=== PATIENT | male | born 1940 | race Caucasian/White ===

== ENCOUNTER 2023-05-28 22:34 | Inpatient (IN) | payer MEDICARE, BC ==
[~2023-05-28] VITALS: Ht 162.6 cm; Wt 80.3 kg
[2023-05-28] MEDS ORDERED: LIDOCAINE 2% JEL UROJET 10 ML MM ONE (23:22)
[2023-05-28 23:23] LABS: BASOPHILS # (AUTO) 0.2 K/uL (0.0-0.2); BASOPHILS % (AUTO) 2.4 % (0.0-2.0); EOSINOPHILS # (AUTO) 0.2 K/uL (0.0-0.7); HEMATOCRIT 39 % (39-51); HEMOGLOBIN 12.8 g/dL (13.5-17.5); LYMPHOCYTES # (AUTO) 1.2 K/uL (0.8-4.8); LYMPHOCYTES % (AUTO) 12.7 % (20.0-44.0); MEAN CORPUSCULAR HEMOGLOBIN 31 PG (26.0-33.0); MEAN CORPUSCULAR HGB CONC 33 g/dl (31.0-36.0); MEAN CORPUSCULAR VOLUME 95 fL (80-96); MONOCYTES # (AUTO) 0.8 K/uL (0.1-1.30); MONOCYTES % (AUTO) 9.1 % (2.0-12.0); NEUTROPHILS # (AUTO) 6.8 K/uL (1.8-8.9); NEUTROPHILS % (AUTO) 73.8 % (43.0-81.0); PLATELET COUNT (AUTO) 126 K/uL (150-450); RED BLOOD CELL COUNT(AUTO) 4.08 MIL/uL (4.5-6.0); WHITE BLOOD COUNT (AUTO) 9.2 K/uL (4.3-11.0)
[2023-05-28 23:34] LABS: CALCIUM, SERUM 9.1 mg/dL (8.5-10.1); CARBON DIOXIDE 25 mmol/L (21-32); CHLORIDE 91 mmol/L (98-107); CREATININE 1.1 mg/dL (0.6-1.3); GLUCOSE 99 mg/dL (74-106); SODIUM SERUM 121 mmol/L (136-145); UREA NITROGEN, BLOOD 20 mg/dL (7-18)
[2023-05-28 23:35] LABS: INR 0.99 (0.91-1.10); PARTIAL THROMBOPLASTIN TIME 30.5 SEC (24.3-34.3); PROTHROMBIN TIME 10.5 SECS (9.2-11.1); SERUM AMMONIA 15 umol/L (11-32)
[2023-05-28 23:40] LABS: ALANINE AMINOTRANSFERASE 58 U/L (12-78); ALBUMIN 3.8 g/dL (3.4-5.0); ALKALINE PHOSPHATASE 95 U/L (46-116); ASPARTATE AMINOTRANSFERASE 37 U/L (15-37); BILIRUBIN,DIRECT 0.1 mg/dL (0.0-0.2); BILIRUBIN,TOTAL 0.2 mg/dL (0.2-1.0); TOTAL PROTEIN, SERUM 7.2 g/dL (6.4-8.2)
[2023-05-28 23:48] LABS: THYROID STIMULATING HORMONE 2.239 uIU/mL (0.358-3.74)
[2023-05-29] MEDS ORDERED: OMEP20CA15 PO (00:50)
[2023-05-29] MEDS ORDERED: LOSA50TA39 PO (00:50)
[2023-05-29] MEDS ORDERED: METO50CA MT (00:50)
[2023-05-29 00:51] LABS: APPEARANCE,URINE CLOUDY (CLEAR); BILIRUBIN,URINE 1+ (NEGATIVE); BLOOD, URINE 3+ Ery/uL (NEGATIVE); COLOR,URINE YELLOW (YELLOW); KETONES,URINE 1+ mg/dL (NEGATIVE); LEUKOCYTE ESTERASE ,URINE 2+ (NEGATIVE); NITRITE, URINE POSITIVE (NEGATIVE); PROTEIN,URINE 2+ mg/dl (NEGATIVE); UGLUCOSE NEGATIVE (NEGATIVE)
[2023-05-29] MEDS ORDERED: FAMO-131 PO (00:59)
[2023-05-29] MEDS ORDERED: MAGN500C16 PO (00:59)
[2023-05-29] MEDS ORDERED: ASPI-1169 PO (00:59)
[2023-05-29] MEDS ORDERED: MELA5TAB PO (00:59)
[2023-05-29] MEDS ORDERED: TRAZ-182 PO (00:59)
[2023-05-29] MEDS ORDERED: CHOL100045 PO (00:59)
[2023-05-29] MEDS ORDERED: CYAN250010 PO (00:59)
[2023-05-29 01:00] LABS: EOSINOPHILS % (MANUAL) 2 % (0-4); LYMPHOCYTES % (MANUAL) 30 % (16-48); MONOCYTES % (MANUAL) 9 % (0-11.0); NEUTROPHILS % (MANUAL) 59 (42-76); PLATELET ESTIMATE DECREASED
[2023-05-29 01:11] LABS: ADD URINE CULTURE YES; BACTERIA,URINE 4+ /HPF (None Seen); MUCUS,URINE Moderate /LPF (None Seen); SQUAMOUS EPITHELIAL CELL,UR None Seen /HPF (None Seen); WBC,URINE 81-100 /HPF (0-3)
[2023-05-29] MEDS ORDERED: LEVOFLOXACIN 750 MG /D5W 150ML PIGGYBACK IV ONE (02:00)
[2023-05-29] MEDS ORDERED: LEVOFLOXACIN 750 MG /D5W 150ML 150 ML IV ONE (02:13)
[2023-05-29 04:00] VITALS: BP 182/92; TEMP 98.1; O2SAT 99
[2023-05-29] MEDS ORDERED: Z GUARD REMEDY 4 OZ OINT TP PRN (04:30)
[2023-05-29] MEDS ORDERED: ACETAMINOPHEN 325 MG TABLET PO PRN (04:30)
[2023-05-29] MEDS ORDERED: ONDANSETRON HCL/PF 4 MG/2 ML VIAL IVP PRN (04:30)
[2023-05-29] MEDS ORDERED: MAGNESIUM HYDROXIDE 30 ML UDC PO PRN (04:30)
[2023-05-29] MEDS ORDERED: MAG HYDROX/AL HYDROX/SIMETH 30 ML UDC PO PRN (04:30)
[2023-05-29] MEDS ORDERED: ZOLPIDEM TARTRATE 5 MG TABLET PO PRN (04:30)
[2023-05-29] MEDS: IV NS 0.9% 1,000 ML IV PRN ×2 (04:52→21:51)
[2023-05-29] MEDS ORDERED: MEROPENEM 500MG/NS 50 ML PB IV ONE (04:52)
[2023-05-29] MEDS: MEROPENEM 1 G in IV NS 0.9% 100 ML IV SCH ×2 (04:58→16:51)
[2023-05-29 05:02] LABS: BASOPHILS % (AUTO) 0.6 % (0.0-2.0); EOSINOPHILS # (AUTO) 0.1 K/uL (0.0-0.7); EOSINOPHILS % (AUTO) 1.2 % (0.0-6.0); HEMATOCRIT 40 % (39-51); LYMPHOCYTES # (AUTO) 1.1 K/uL (0.8-4.8); LYMPHOCYTES % (AUTO) 14.6 % (20.0-44.0); MEAN CORPUSCULAR HEMOGLOBIN 31 PG (26.0-33.0); MEAN CORPUSCULAR HGB CONC 33 g/dl (31.0-36.0); MEAN CORPUSCULAR VOLUME 94 fL (80-96); MONOCYTES % (AUTO) 12.7 % (2.0-12.0); NEUTROPHILS # (AUTO) 5.4 K/uL (1.8-8.9); NEUTROPHILS % (AUTO) 70.9 % (43.0-81.0); PLATELET COUNT (AUTO) 112 K/uL (150-450); RED BLOOD CELL COUNT(AUTO) 4.21 MIL/uL (4.5-6.0); RED CELL DISTRIBUTION WIDTH 17.3 % (11.5-15.0); WHITE BLOOD COUNT (AUTO) 7.7 K/uL (4.3-11.0)
[2023-05-29 05:31] LABS: CALCIUM, SERUM 8.4 mg/dL (8.5-10.1); CARBON DIOXIDE 25 mmol/L (21-32); CHLORIDE 92 mmol/L (98-107); CREATININE 1.1 mg/dL (0.6-1.3); GLUCOSE 106 mg/dL (74-106); MAGNESIUM 2.3 mg/dL (1.8-2.4); PHOSPHORUS 3.4 mg/dL (2.5-4.9); POTASSIUM 4.3 mmol/L (3.5-5.1); SODIUM SERUM 123 mmol/L (136-145); UREA NITROGEN, BLOOD 18 mg/dL (7-18)
[2023-05-29 07:00] VITALS: BP 168/88; TEMP 98.9; O2SAT 99
[2023-05-29 08:00] VITALS: BP 150/69; TEMP 99; O2SAT 98
[2023-05-29] MEDS: METOPROLOL TARTRATE 25 MG TABLET PO SCH ×2 (08:07→21:44)
[2023-05-29] MEDS: LOSARTAN POTASSIUM 50 MG TABLET PO SCH (08:08)
[2023-05-29] MEDS: PANTOPRAZOLE 40 MG TABLET.DR PO SCH (08:09)
[2023-05-29] MEDS: ASPIRIN 81 MG TAB.CHEW PO SCH (08:09)
[2023-05-29] MEDS: FAMOTIDINE (20 MG) 20 MG TABLET PO SCH ×2 (08:09→21:45)
[2023-05-29] MEDS: CHOLECALCIFEROL 1,000 UNIT TABLET (VIT D3) PO SCH (08:09)
[2023-05-29] MEDS ORDERED: EVOL140P3 SQ (08:55)
[2023-05-29] MEDS ORDERED: METO100T14 PO (08:55)
[2023-05-29] MEDS ORDERED: BUSP7.5T7 PO (08:55)
[2023-05-29] MEDS ORDERED: DICY10CA37 PO (08:55)
[2023-05-29] MEDS ORDERED: ATOR40TA PO (08:55)
[2023-05-29] MEDS ORDERED: MAGN400T52 PO (08:55)
[2023-05-29] MEDS ORDERED: ALA PO (08:55)
[2023-05-29] MEDS ORDERED: DOCU-270 PO (08:55)
[2023-05-29 10:01] LABS: THYROID STIMULATING HORMONE 1.942 uIU/mL (0.358-3.74); URIC ACID 3.5 mg/dL (2.6-7.2)
[2023-05-29 12:00] VITALS: BP 129/69; TEMP 99.1; O2SAT 98
[2023-05-29] MEDS: DICYCLOMINE HCL 10 MG CAPSULE PO SCH ×2 (12:49→16:51)
[2023-05-29 13:22] LABS: MAGNESIUM 2.3 mg/dL (1.8-2.4); PHOSPHORUS 3.2 mg/dL (2.5-4.9)
[2023-05-29 13:33] LABS: THYROID STIMULATING HORMONE 1.639 uIU/mL (0.358-3.74); URIC ACID 2.9 mg/dL (2.6-7.2)
[2023-05-29 14:47] LABS: CARBON DIOXIDE 23 mmol/L (21-32); CHLORIDE 92 mmol/L (98-107); GLUCOSE 116 mg/dL (74-106); POTASSIUM 4.6 mmol/L (3.5-5.1); SODIUM SERUM 125 mmol/L (136-145); UREA NITROGEN, BLOOD 15 mg/dL (7-18)
[2023-05-29 16:00] VITALS: BP 163/70; TEMP 98.8; O2SAT 98
[2023-05-29] MEDS: busPIRone 5 MG TABLET PO SCH (16:52)
[2023-05-29] MEDS: DOCUSATE SODIUM 100 MG CAPSULE PO SCH (16:52)
[2023-05-29 19:00] VITALS: BP 130/61; TEMP 98.9; O2SAT 98
[2023-05-29] MEDS ORDERED: METOPROLOL TARTRATE 50 MG TABLET PO SCH (21:00)
[2023-05-29] MEDS ORDERED: TRAZODONE 50 MG TABLET PO PRN (22:00)
[2023-05-30] MEDS: MEROPENEM 1 G in IV NS 0.9% 100 ML IV SCH ×2 (05:32→17:08)
[2023-05-30 05:50] LABS: BASOPHILS % (AUTO) 0.2 % (0.0-2.0); EOSINOPHILS % (AUTO) 0.7 % (0.0-6.0); HEMATOCRIT 40 % (39-51); HEMOGLOBIN 13.3 g/dL (13.5-17.5); LYMPHOCYTES % (AUTO) 15.2 % (20.0-44.0); MEAN CORPUSCULAR HEMOGLOBIN 31 PG (26.0-33.0); MEAN CORPUSCULAR HGB CONC 33 g/dl (31.0-36.0); MEAN CORPUSCULAR VOLUME 94 fL (80-96); MONOCYTES # (AUTO) 0.9 K/uL (0.1-1.30); MONOCYTES % (AUTO) 13.3 % (2.0-12.0); NEUTROPHILS # (AUTO) 4.8 K/uL (1.8-8.9); NEUTROPHILS % (AUTO) 70.6 % (43.0-81.0); PLATELET COUNT (AUTO) 120 K/uL (150-450); RED BLOOD CELL COUNT(AUTO) 4.24 MIL/uL (4.5-6.0); RED CELL DISTRIBUTION WIDTH 17.5 % (11.5-15.0); WHITE BLOOD COUNT (AUTO) 6.8 K/uL (4.3-11.0)
[2023-05-30 06:21] LABS: THYROID STIMULATING HORMONE 2.223 uIU/mL (0.358-3.74); URIC ACID 3.1 mg/dL (2.6-7.2)
[2023-05-30 06:23] LABS: CALCIUM, SERUM 8.4 mg/dL (8.5-10.1); MAGNESIUM 2.8 mg/dL (1.8-2.4); PHOSPHORUS 3.2 mg/dL (2.5-4.9); POTASSIUM 4.9 mmol/L (3.5-5.1)
[2023-05-30 06:26] LABS: FREE PSA 0.2 ng/mL (0.00-45); PROSTATE SPECIFIC ANTIGEN SCR 0.77 ng/mL (0.00-4.00)
[2023-05-30 08:00] VITALS: BP 151/72; TEMP 98.4; O2SAT 98
[2023-05-30] MEDS: PANTOPRAZOLE 40 MG TABLET.DR PO SCH (08:14)
[2023-05-30] MEDS ORDERED: CYANOCOBALAMIN PO SCH (09:00)
[2023-05-30] MEDS: DOCUSATE SODIUM 100 MG CAPSULE PO SCH ×3 (10:03→17:22)
[2023-05-30] MEDS: FAMOTIDINE (20 MG) 20 MG TABLET PO SCH ×2 (10:16→21:31)
[2023-05-30] MEDS: CHOLECALCIFEROL 1,000 UNIT TABLET (VIT D3) PO SCH (10:16)
[2023-05-30] MEDS: ATORVASTATIN 40 MG TABLET PO SCH (10:17)
[2023-05-30] MEDS: busPIRone 5 MG TABLET PO SCH ×2 (10:17→17:08)
[2023-05-30] MEDS: METOPROLOL TARTRATE 25 MG TABLET PO SCH ×2 (10:18→21:32)
[2023-05-30] MEDS: LOSARTAN POTASSIUM 50 MG TABLET PO SCH (10:20)
[2023-05-30] MEDS: DICYCLOMINE HCL 10 MG CAPSULE PO SCH ×3 (10:20→17:09)
[2023-05-30] MEDS: ASPIRIN 81 MG TAB.CHEW PO SCH (10:25)
[2023-05-30 14:00] VITALS: BP 150/78; TEMP 99.1; O2SAT 99
[2023-05-30 20:00] VITALS: BP 163/81; TEMP 98.1; O2SAT 99
[2023-05-31] MEDS: MEROPENEM 1 G in IV NS 0.9% 100 ML IV SCH ×2 (05:11→17:04)
[2023-05-31 07:21] LABS: BASOPHILS % (AUTO) 0.1 % (0.0-2.0); EOSINOPHILS # (AUTO) 0.1 K/uL (0.0-0.7); EOSINOPHILS % (AUTO) 1.7 % (0.0-6.0); HEMATOCRIT 36 % (39-51); LYMPHOCYTES # (AUTO) 0.7 K/uL (0.8-4.8); LYMPHOCYTES % (AUTO) 12.8 % (20.0-44.0); MEAN CORPUSCULAR HEMOGLOBIN 31 PG (26.0-33.0); MEAN CORPUSCULAR HGB CONC 33 g/dl (31.0-36.0); MEAN CORPUSCULAR VOLUME 93 fL (80-96); MONOCYTES # (AUTO) 0.9 K/uL (0.1-1.30); NEUTROPHILS % (AUTO) 69.4 % (43.0-81.0); PLATELET COUNT (AUTO) 118 K/uL (150-450); RED BLOOD CELL COUNT(AUTO) 3.87 MIL/uL (4.5-6.0); RED CELL DISTRIBUTION WIDTH 17.1 % (11.5-15.0); WHITE BLOOD COUNT (AUTO) 5.7 K/uL (4.3-11.0)
[2023-05-31 07:33] LABS: CALCIUM, SERUM 8.2 mg/dL (8.5-10.1); CARBON DIOXIDE 27 mmol/L (21-32); CHLORIDE 98 mmol/L (98-107); GLUCOSE 102 mg/dL (74-106); SODIUM SERUM 133 mmol/L (136-145); UREA NITROGEN, BLOOD 13 mg/dL (7-18)
[2023-05-31 08:00] VITALS: BP 136/67; TEMP 98.2; O2SAT 99
[2023-05-31] MEDS: DOCUSATE SODIUM 100 MG CAPSULE PO SCH ×2 (08:51→17:00)
[2023-05-31] MEDS: FAMOTIDINE (20 MG) 20 MG TABLET PO SCH ×2 (08:51→21:06)
[2023-05-31] MEDS: ASPIRIN 81 MG TAB.CHEW PO SCH (08:51)
[2023-05-31] MEDS: CHOLECALCIFEROL 1,000 UNIT TABLET (VIT D3) PO SCH (08:51)
[2023-05-31] MEDS: DICYCLOMINE HCL 10 MG CAPSULE PO SCH ×3 (08:51→16:59)
[2023-05-31] MEDS: ATORVASTATIN 40 MG TABLET PO SCH (08:52)
[2023-05-31] MEDS: busPIRone 5 MG TABLET PO SCH ×2 (08:52→16:59)
[2023-05-31] MEDS: LOSARTAN POTASSIUM 50 MG TABLET PO SCH (08:53)
[2023-05-31] MEDS: METOPROLOL TARTRATE 25 MG TABLET PO SCH ×2 (08:53→20:58)
[2023-05-31] MEDS: PANTOPRAZOLE 40 MG TABLET.DR PO SCH (09:00)
[2023-05-31 20:00] VITALS: BP 107/63; TEMP 98.8; O2SAT 98
[2023-06-01] MEDS: MEROPENEM 1 G in IV NS 0.9% 100 ML IV SCH (05:03)
[2023-06-01] MEDS: PANTOPRAZOLE 40 MG TABLET.DR PO SCH (07:54)
[2023-06-01 08:00] VITALS: BP 166/93; TEMP 98.1; O2SAT 98
[2023-06-01 08:28] LABS: BASOPHILS % (AUTO) 0.2 % (0.0-2.0); EOSINOPHILS # (AUTO) 0.2 K/uL (0.0-0.7); EOSINOPHILS % (AUTO) 2.3 % (0.0-6.0); HEMATOCRIT 40 % (39-51); HEMOGLOBIN 13.2 g/dL (13.5-17.5); LYMPHOCYTES # (AUTO) 1.1 K/uL (0.8-4.8); LYMPHOCYTES % (AUTO) 13.6 % (20.0-44.0); MEAN CORPUSCULAR HEMOGLOBIN 31 PG (26.0-33.0); MEAN CORPUSCULAR HGB CONC 33 g/dl (31.0-36.0); MEAN CORPUSCULAR VOLUME 94 fL (80-96); MONOCYTES # (AUTO) 0.9 K/uL (0.1-1.30); MONOCYTES % (AUTO) 11.9 % (2.0-12.0); NEUTROPHILS # (AUTO) 5.7 K/uL (1.8-8.9); PLATELET COUNT (AUTO) 127 K/uL (150-450); RED BLOOD CELL COUNT(AUTO) 4.24 MIL/uL (4.5-6.0); RED CELL DISTRIBUTION WIDTH 17.1 % (11.5-15.0); WHITE BLOOD COUNT (AUTO) 7.9 K/uL (4.3-11.0)
[2023-06-01] MEDS: DOCUSATE SODIUM 100 MG CAPSULE PO SCH (09:21)
[2023-06-01] MEDS: ASPIRIN 81 MG TAB.CHEW PO SCH (09:21)
[2023-06-01] MEDS: ATORVASTATIN 40 MG TABLET PO SCH (09:21)
[2023-06-01] MEDS: FAMOTIDINE (20 MG) 20 MG TABLET PO SCH (09:21)
[2023-06-01] MEDS: DICYCLOMINE HCL 10 MG CAPSULE PO SCH ×2 (09:21→12:57)
[2023-06-01] MEDS: CHOLECALCIFEROL 1,000 UNIT TABLET (VIT D3) PO SCH (09:21)
[2023-06-01] MEDS: busPIRone 5 MG TABLET PO SCH (09:21)
[2023-06-01 09:22] VITALS: BP 166/93
[2023-06-01] MEDS: LOSARTAN POTASSIUM 50 MG TABLET PO SCH (09:22)
[2023-06-01] MEDS: METOPROLOL TARTRATE 25 MG TABLET PO SCH (09:22)
[2023-06-01 09:31] LABS: CALCIUM, SERUM 8.5 mg/dL (8.5-10.1); CARBON DIOXIDE 25 mmol/L (21-32); CHLORIDE 97 mmol/L (98-107); GLUCOSE 109 mg/dL (74-106); POTASSIUM 4.2 mmol/L (3.5-5.1); SODIUM SERUM 133 mmol/L (136-145); UREA NITROGEN, BLOOD 17 mg/dL (7-18)
[2023-06-01] MEDS ORDERED: NITR100C PO (11:42)
== END 2023-06-01 14:24 | disposition home health service (06) | DRG 690 ==
LOC: ER 22:41 → TELE 05-29 01:45 → MED 05-30 10:38
PROVIDERS: ADMIT Nurse Practitioner Acute Care; ATTEND Nurse Practitioner Acute Care
DX: N39.0 Urinary tract infection, site not specified (principal); E87.1 Hypo-osmolality and hyponatremia; N40.1 Benign prostatic hyperplasia with lower urinary tract symptoms; R33.9 Retention of urine, unspecified; I10 Essential (primary) hypertension; Z86.73 Personal history of transient ischemic attack (TIA), and cerebral infarction without residual deficits; I25.10 Atherosclerotic heart disease of native coronary artery without angina pectoris; Z95.5 Presence of coronary angioplasty implant and graft; Z90.49 Acquired absence of other specified parts of digestive tract; Z98.890 Other specified postprocedural states; Z88.0 Allergy status to penicillin; Z88.8 Allergy status to other drugs, medicaments and biological substances; Z79.82 Long term (current) use of aspirin; Z79.899 Other long term (current) drug therapy; Z88.2 Allergy status to sulfonamides; Z88.3 Allergy status to other anti-infective agents; B96.89 Other specified bacterial agents as the cause of diseases classified elsewhere; E78.5 Hyperlipidemia, unspecified; E66.9 Obesity, unspecified; F41.9 Anxiety disorder, unspecified; Z68.30 Body mass index [BMI] 30.0-30.9, adult; Z87.440 Personal history of urinary (tract) infections; Z90.79 Acquired absence of other genital organ(s); R31.9 Hematuria, unspecified
CPT/HCPCS: 36415; 70450-TC; 71045-TC; 73090-TC; 80048-TC; 80061-TC; 80076-TC; 81001; 82140-TC; 82533; 82962-TC; 83735-TC; 84100-TC; 84153-TC; 84154-TC; 84300-TC; 84443-TC; 84484-TC; 84550-TC; 85025-TC; 85730-TC; 87086-TC; 97112-TC; 97116-TC; 97530-TC; A4223; G0378; J1956; J2185; J3490; J7030